=== PATIENT | female | born 1955 | race Caucasian/White ===

== ENCOUNTER 2021-03-19 03:35 | Inpatient (IN) | payer BC, SELFPAY ==
[~2021-03-19] VITALS: Ht 165.1 cm; Wt 100.2 kg
[2021-03-19 03:40] VITALS: BP_SYST 107
[2021-03-19] MEDS ORDERED: NACL 0.9% 1,000 ML IV ONE (04:00)
[2021-03-19] MEDS ORDERED: ONDANSETRON HCL 4 MG/2 ML VIAL IVP ONE (04:00)
[2021-03-19] MEDS ORDERED: MORPHINE SULFATE 10 MG/ML VIAL IVP ONE (04:00)
[2021-03-19 04:02] LABS: HEMOGLOBIN 14.3 g/dL (12.0-16.0); RED CELL DISTRIBUTION WIDTH 13.2 % (9.0-15.0)
[2021-03-19 04:08] LABS: BASOPHILS % (AUTO) 0.4 % (0.0-2.0); EOSINOPHILS % (AUTO) 0.1 % (0.0-4.0); HEMATOCRIT 42.1 % (36-48); LYMPHOCYTES # (AUTO) 1.8 K/uL (1.0-5.5); LYMPHOCYTES % (AUTO) 14.2 % (20.5-51.5); MEAN CORPUSCULAR HEMOGLOBIN 31 pg (27-31); MEAN CORPUSCULAR HGB CONC 34 % (32-36); MEAN CORPUSCULAR VOLUME 90 fL (79.0-98.0); MONOCYTES # (AUTO) 0.7 K/uL (0.0-1.0); MONOCYTES % (AUTO) 5.7 % (1.7-9.3); NEUTROPHILS # (AUTO) 10.1 K/uL (1.8-7.7); NEUTROPHILS % (AUTO) 79.6 % (40.0-70.0); PLATELET COUNT (AUTO) 275 K/uL (130-430); RED BLOOD CELL COUNT(AUTO) 4.69 MIL/uL (4.2-6.2); WHITE BLOOD COUNT (AUTO) 12.7 K/uL (4.8-10.8)
[2021-03-19 04:09] LABS: CALCIUM 9.5 mg/dL (8.4-11.0); CREATININE 1.06 mg/dL (0.55-1.30); POTASSIUM 3.5 mmol/L (3.5-5.1)
[2021-03-19 04:15] LABS: ALBUMIN 3.7 g/dL (3.4-4.8); TOTAL BILIRUBIN 0.6 mg/dL (0.0-1.0)
[2021-03-19] MEDS ORDERED: LEVO25TA7 PO (05:45)
[2021-03-19] MEDS ORDERED: PRO10 PO (05:45)
[2021-03-19] MEDS ORDERED: HYDR12.55 (05:45)
[2021-03-19] MEDS ORDERED: PIPERACILLIN/TAZO 3.375 GM in NS 50 ML IV ONE (06:00)
[2021-03-19] MEDS: LEVOTHYROXINE SODIUM 0.025 MG TABLET PO SCH (07:00)
[2021-03-19 07:02] VITALS: BP_SYST 111
[2021-03-19] MEDS ORDERED: NALOXONE HCL 0.4 MG/ML AMP (NARCAN) IVP PRN ×2 (07:15→18:30)
[2021-03-19] MEDS ORDERED: MORPHINE 4 MG INJ. 4 MG/ML VIAL IVP PRN (07:15)
[2021-03-19] MEDS ORDERED: ONDANSETRON HCL 4 MG/2 ML VIAL IVP PRN (07:15)
[2021-03-19] MEDS: PIPERACILLIN/TAZO 3.375/DEX-IS 50 ML IV SCH ×4 (07:15→23:23)
[2021-03-19] MEDS ORDERED: ALBUTEROL SULFATE 0.083% 2.5 MG/3 ML VIAL.NEB INH PRN (07:15)
[2021-03-19] MEDS ORDERED: MORPHINE 2 MG/ML INJ. SYRINGE IVP PRN (07:15)
[2021-03-19] MEDS ORDERED: LORazepam 2 MG/ML VIAL IVP PRN (07:30)
[2021-03-19] MEDS ORDERED: ACETAMINOPHEN 325 MG TABLET PO PRN (08:00)
[2021-03-19 08:21] VITALS: BP_SYST 116
[2021-03-19] MEDS: FLUoxetine HCL 10 MG CAPSULE (PROzac) PO SCH (09:00)
[2021-03-19 09:16] VITALS: BP_SYST 116
[2021-03-19] MEDS: NACL 0.9% 1,000 ML IV SCH ×3 (09:19→23:15)
[2021-03-19 09:34] LABS: BILIRUBIN,URINE NEGATIVE (NEGATIVE); BLOOD, URINE NEGATIVE (NEGATIVE); GLUCOSE,URINE NEGATIVE (NEGATIVE); KETONES,URINE NEGATIVE (NEGATIVE); LEUKOCYTE ESTERASE ,URINE NEGATIVE (NEGATIVE); NITRITE, URINE NEGATIVE (NEGATIVE); PH,URINE 5.5 (5.0-8.0); PROTEIN URINE NEGATIVE (NEGATIVE); UROBILINOGEN,URINE 0.2 (0.2-1.0)
[2021-03-19 09:38] LABS: CLARITY/URINE SLIGHTLY HAZY (CLEAR); COLOR,URINE AMBER (YELLOW)
[2021-03-19 11:24] VITALS: BP_SYST 118
[2021-03-19] MEDS: ACETAMINOPHEN 325 MG TABLET PO PRN (14:38)
[2021-03-19 15:48] VITALS: BP_SYST 119
[2021-03-19] MEDS ORDERED: KETOROLAC TROMETHAMINE 30 MG VIAL IVP PRN (18:30)
[2021-03-19] MEDS ORDERED: HYDROmorphone 1 MG/ML INJ. CARTRIDGE IVP PRN (18:30)
[2021-03-19] MEDS ORDERED: METOCLOPRAMIDE HCL 10 MG/2 ML VIAL IVP PRN (18:30)
[2021-03-20 00:14] VITALS: BP_SYST 99
[2021-03-20] MEDS: ACETAMINOPHEN 325 MG TABLET PO PRN ×2 (01:37→13:54)
[2021-03-20] MEDS: PIPERACILLIN/TAZO 3.375/DEX-IS 50 ML IV SCH ×3 (05:11→18:37)
[2021-03-20] MEDS: LEVOTHYROXINE SODIUM 0.025 MG TABLET PO SCH (06:13)
[2021-03-20] MEDS: NACL 0.9% 1,000 ML IV SCH ×2 (06:17→15:15)
[2021-03-20 06:43] LABS: BASOPHILS % (AUTO) 0.1 % (0.0-2.0); HEMATOCRIT 35.9 % (36-48); LYMPHOCYTES # (AUTO) 0.5 K/uL (1.0-5.5); LYMPHOCYTES % (AUTO) 3.5 % (20.5-51.5); MEAN CORPUSCULAR HEMOGLOBIN 31 pg (27-31); MEAN CORPUSCULAR HGB CONC 34 % (32-36); MEAN CORPUSCULAR VOLUME 92 fL (79.0-98.0); MONOCYTES # (AUTO) 0.4 K/uL (0.0-1.0); MONOCYTES % (AUTO) 2.5 % (1.7-9.3); NEUTROPHILS # (AUTO) 13.4 K/uL (1.8-7.7); NEUTROPHILS % (AUTO) 93.9 % (40.0-70.0); PLATELET COUNT (AUTO) 199 K/uL (130-430); RED BLOOD CELL COUNT(AUTO) 3.92 MIL/uL (4.2-6.2); RED CELL DISTRIBUTION WIDTH 13.5 % (9.0-15.0); WHITE BLOOD COUNT (AUTO) 14.2 K/uL (4.8-10.8)
[2021-03-20 07:20] LABS: ALBUMIN 2.8 g/dL (3.4-4.8); CALCIUM 8.1 mg/dL (8.4-11.0); CREATININE 1.04 mg/dL (0.55-1.30); POTASSIUM 3.8 mmol/L (3.5-5.1); TOTAL BILIRUBIN 0.4 mg/dL (0.0-1.0)
[2021-03-20 08:00] VITALS: BP_SYST 98
[2021-03-20] MEDS: FLUoxetine HCL 10 MG CAPSULE (PROzac) PO SCH (08:25)
[2021-03-20 11:31] VITALS: BP_SYST 101
[2021-03-20 15:53] VITALS: BP_SYST 91
[2021-03-20] MEDS ORDERED: ZOLPIDEM TARTRATE 5 MG TABLET PO PRN (20:00)
[2021-03-20 20:30] VITALS: BP_SYST 118
[2021-03-21 00:34] VITALS: BP_SYST 99
[2021-03-21] MEDS: PIPERACILLIN/TAZO 3.375/DEX-IS 50 ML IV SCH ×3 (00:35→12:38)
[2021-03-21] MEDS: NACL 0.9% 1,000 ML IV SCH ×2 (00:36→06:06)
[2021-03-21] MEDS: LEVOTHYROXINE SODIUM 0.025 MG TABLET PO SCH (06:06)
[2021-03-21 08:15] VITALS: BP_SYST 108
[2021-03-21] MEDS ORDERED: AUG875 PO (09:27)
[2021-03-21] MEDS: FLUoxetine HCL 10 MG CAPSULE (PROzac) PO SCH (09:43)
[2021-03-21] MEDS: ACETAMINOPHEN 325 MG TABLET PO PRN (10:36)
[2021-03-21 11:20] VITALS: BP_SYST 130
[2021-03-21 15:21] VITALS: BP_SYST 118
[2021-03-21 18:25] VITALS: BP_SYST 118
== END 2021-03-21 18:50 | disposition home or self-care (01) | DRG 340 ==
LOC: SED 03:35 → SMU 06:26
PROVIDERS: ADMIT Internal Medicine Hospice and Palliative Medicine; ATTEND Internal Medicine Hospice and Palliative Medicine
PROC: 0DTJ4ZZ Resection of Appendix, Percutaneous Endoscopic Approach (ICD-10-PCS; principal; 2021-03-19 17:50)
DX: K35.32 Acute appendicitis with perforation, localized peritonitis, and gangrene, without abscess (principal); K66.0 Peritoneal adhesions (postprocedural) (postinfection); F41.1 Generalized anxiety disorder; E03.9 Hypothyroidism, unspecified; K43.9 Ventral hernia without obstruction or gangrene; Z20.822 Contact with and (suspected) exposure to COVID-19; I10 Essential (primary) hypertension; Z90.710 Acquired absence of both cervix and uterus; Z90.49 Acquired absence of other specified parts of digestive tract; Z79.890 Hormone replacement therapy
CPT/HCPCS: 36415; 71045; 76376; 80053; 81003; 83690; 85025; 85610-TC; 87070-TC; 87075-TC; 87081; 88304; 93005; 93306; 96361; 96365; 96375; 99285; J2270; J2405; J2543

== ENCOUNTER 2021-12-08 05:30 | Inpatient (IN) | payer BC, SELFPAY ==
[~2021-12-08] VITALS: Ht 165.1 cm; Wt 93.0 kg
[~2021-12-08 05:30] MED LIST: AUG875 PO; HYDR12.55; LEVO25TA7 PO; PRO10 PO
[2021-12-08] MEDS ORDERED: CEFAZOLIN 1 GM IVPB PREMIX 0 ML IV ONE (06:14)
[2021-12-08] MEDS ORDERED: CEFAZOLIN SOD 1 GM in D5W 50 ML IV ONE (07:00)
[2021-12-08] MEDS ORDERED: ACETAMINOPHEN I.V. 1000 MG 100 ML IV ONE (07:32)
[2021-12-08] MEDS ORDERED: BUPIVACAINE LIPOSOME/PF 266 MG/20 ML VIAL INFIL ONE (08:12)
[2021-12-08] MEDS ORDERED: LR 1,000 ML IV SCH (08:30)
[2021-12-08] MEDS ORDERED: hydrALAZINE HCL 20 MG/ML VIAL IVP PRN (08:30)
[2021-12-08] MEDS ORDERED: METOCLOPRAMIDE HCL 10 MG/2 ML VIAL IVP PRN (08:30)
[2021-12-08] MEDS ORDERED: MEPERIDINE HCL/PF 25 MG/ML DISP.SYRIN IVP PRN (08:30)
[2021-12-08] MEDS ORDERED: HYDROmorphone 1 MG/ML INJ. CARTRIDGE IVP PRN ×3 (08:30→10:00)
[2021-12-08] MEDS ORDERED: MIDAZOLAM HCL 2 MG/2 ML VIAL (VERSED) IVP PRN (08:30)
[2021-12-08] MEDS ORDERED: ONDANSETRON HCL 4 MG/2 ML VIAL IVP PRN (10:00)
[2021-12-08] MEDS ORDERED: MIDAZOLAM HCL 5 MG/ML VIAL (VERSED) IV ONE (10:22)
[2021-12-08] MEDS ORDERED: PROPOFOL 200MG/ 20ML VIAL (DIPRIVAN) IV ONE (10:22)
[2021-12-08] MEDS ORDERED: SUGAMMADEX SODIUM 200 MG/2 ML VIAL IV ONE (10:22)
[2021-12-08] MEDS ORDERED: NS IRRIG SOLN 1000 ML IR ONE (10:22)
[2021-12-08] MEDS ORDERED: ONDANSETRON HCL 4 MG/2 ML VIAL ONE (10:22)
[2021-12-08] MEDS ORDERED: DEXAMETHASONE SOD PHOSPHATE 4 MG/ML VIAL ONE (10:22)
[2021-12-08] MEDS ORDERED: CEFAZOLIN 2 GM IVPB PREMIX 50 ML IV ONE (10:22)
[2021-12-08] MEDS ORDERED: KETOROLAC TROMETHAMINE 30 MG VIAL ONE (10:22)
[2021-12-08] MEDS ORDERED: LIDOCAINE 2%, 20 ML MDV ONE (10:22)
[2021-12-08] MEDS ORDERED: LR 1,000 ML IV.SOLN IV ONE (10:22)
[2021-12-08] MEDS ORDERED: ROCURONIUM BROMIDE 10 MG/ML (ZEMURON) ONE (10:22)
[2021-12-08] MEDS ORDERED: DESFLURANE 15 MIN GAS INH ONE (10:22)
[2021-12-08] MEDS ORDERED: fentaNYL CITRATE 250 MCG/5 ML AMP ONE (10:22)
[2021-12-08] MEDS ORDERED: FLUO20TA29 PO (11:04)
[2021-12-08] MEDS ORDERED: HYDR12.55 PO (11:06)
[2021-12-08] MEDS ORDERED: SYN75 PO (11:07)
[2021-12-08] MEDS ORDERED: LORA-258 PO (11:08)
[2021-12-08 12:26] VITALS: BP_SYST 106
[2021-12-08] MEDS: D5/0.45 NS 1,000 ML IV SCH ×2 (12:42→22:42)
[2021-12-08] MEDS: CEFAZOLIN 1 GM IVPB PREMIX 50 ML IV SCH ×2 (13:01→22:42)
[2021-12-08] MEDS: HYDROcodone/ACETAMIN 5-325 MG TAB (NORCO/ VICODIN) PO PRN (22:40)
[2021-12-08] MEDS: FAMOTIDINE PF 20 MG/2 ML VIAL IVP SCH (22:41)
[2021-12-09 04:00] VITALS: BP_SYST 113
[2021-12-09] MEDS: FAMOTIDINE PF 20 MG/2 ML VIAL IVP SCH ×2 (07:48→21:33)
[2021-12-09] MEDS: ENOXAPARIN SODIUM 30 MG/0.3 ML SYRINGE SUBCUT SCH (07:52)
[2021-12-09 08:45] VITALS: BP_SYST 124
[2021-12-09] MEDS: D5/0.45 NS 1,000 ML IV SCH ×2 (09:57→16:59)
[2021-12-09 11:10] VITALS: BP_SYST 118
[2021-12-09] MEDS: HYDROcodone/ACETAMIN 5-325 MG TAB (NORCO/ VICODIN) PO PRN ×3 (12:56→21:06)
[2021-12-09] MEDS: METOCLOPRAMIDE HCL 10 MG TABLET PO SCH (17:02)
[2021-12-09 17:07] VITALS: BP_SYST 134
[2021-12-09 22:56] VITALS: BP_SYST 115
[2021-12-09 23:04] VITALS: BP_SYST 157
[2021-12-10] MEDS: METOCLOPRAMIDE HCL 10 MG TABLET PO SCH ×5 (01:03→23:52)
[2021-12-10] MEDS: HYDROcodone/ACETAMIN 5-325 MG TAB (NORCO/ VICODIN) PO PRN ×5 (01:06→23:54)
[2021-12-10] MEDS: D5/0.45 NS 1,000 ML IV SCH ×3 (01:08→21:10)
[2021-12-10 01:37] VITALS: BP_SYST 115
[2021-12-10] MEDS: LEVOTHYROXINE SODIUM 0.15 MG TABLET PO SCH (06:09)
[2021-12-10 08:00] VITALS: BP_SYST 112
[2021-12-10] MEDS: FLUoxetine HCL 20 MG CAPSULE (PROzac) PO SCH (09:40)
[2021-12-10] MEDS: FAMOTIDINE PF 20 MG/2 ML VIAL IVP SCH ×2 (09:40→21:10)
[2021-12-10] MEDS: ENOXAPARIN SODIUM 30 MG/0.3 ML SYRINGE SUBCUT SCH (09:41)
[2021-12-10] MEDS ORDERED: LORazepam 1 MG TABLET PO PRN (10:00)
[2021-12-10] MEDS ORDERED: LEVOTHYROXINE SODIUM 0.15 MG TABLET PO ONE (10:00)
[2021-12-10] MEDS ORDERED: HYDROCHLOROTHIAZIDE 12.5 MG CAPSULE (HCTZ) PO ONE (10:15)
[2021-12-10] MEDS: LORazepam 1 MG TABLET PO PRN ×2 (12:07→23:52)
[2021-12-10 13:07] VITALS: BP_SYST 117
[2021-12-10 17:24] VITALS: BP_SYST 114
[2021-12-10 19:00] VITALS: BP_SYST 115
[2021-12-10 20:00] VITALS: BP_SYST 115
[2021-12-10] MEDS: AMOXICILLIN/CLAVULANATE POTASSIUM 875 MG TABLET PO SCH (21:10)
[2021-12-11 00:12] VITALS: BP_SYST 126
[2021-12-11 06:15] LABS: BASOPHILS % (AUTO) 0.4 % (0.0-2.0); EOSINOPHILS # (AUTO) 0.3 K/uL (0.0-0.4); HEMATOCRIT 33.7 % (36-48); HEMOGLOBIN 11.4 g/dL (12.0-16.0); LYMPHOCYTES # (AUTO) 1.3 K/uL (1.0-5.5); LYMPHOCYTES % (AUTO) 16.1 % (20.5-51.5); MEAN CORPUSCULAR HEMOGLOBIN 31 pg (27-31); MEAN CORPUSCULAR HGB CONC 34 % (32-36); MEAN CORPUSCULAR VOLUME 91 fL (79.0-98.0); MONOCYTES # (AUTO) 0.9 K/uL (0.0-1.0); MONOCYTES % (AUTO) 10.9 % (1.7-9.3); NEUTROPHILS # (AUTO) 5.4 K/uL (1.8-7.7); NEUTROPHILS % (AUTO) 68.6 % (40.0-70.0); PLATELET COUNT (AUTO) 202 K/uL (130-430); RED CELL DISTRIBUTION WIDTH 12.9 % (9.0-15.0); WHITE BLOOD COUNT (AUTO) 7.8 K/uL (4.8-10.8)
[2021-12-11] MEDS: METOCLOPRAMIDE HCL 10 MG TABLET PO SCH ×2 (06:29→12:22)
[2021-12-11] MEDS: LEVOTHYROXINE SODIUM 0.15 MG TABLET PO SCH (06:30)
[2021-12-11 06:50] LABS: CALCIUM 9.1 mg/dL (8.4-11.0); CREATININE 0.69 mg/dL (0.55-1.30); POTASSIUM 3.3 mmol/L (3.5-5.1)
[2021-12-11] MEDS ORDERED: LEVOTHYROXINE SODIUM 0.15 MG TABLET PO SCH (07:00)
[2021-12-11 07:58] VITALS: BP_SYST 133
[2021-12-11] MEDS: FAMOTIDINE PF 20 MG/2 ML VIAL IVP SCH (08:39)
[2021-12-11] MEDS: AMOXICILLIN/CLAVULANATE POTASSIUM 875 MG TABLET PO SCH (08:39)
[2021-12-11] MEDS: FLUoxetine HCL 20 MG CAPSULE (PROzac) PO SCH (08:39)
[2021-12-11] MEDS: ENOXAPARIN SODIUM 30 MG/0.3 ML SYRINGE SUBCUT SCH (08:44)
[2021-12-11] MEDS: D5/0.45 NS 1,000 ML IV SCH (08:45)
[2021-12-11] MEDS ORDERED: FLUoxetine HCL 20 MG CAPSULE (PROzac) PO SCH (09:00)
[2021-12-11] MEDS ORDERED: HYDROCHLOROTHIAZIDE 12.5 MG CAPSULE (HCTZ) PO SCH (09:00)
[2021-12-11] MEDS: HYDROcodone/ACETAMIN 5-325 MG TAB (NORCO/ VICODIN) PO PRN (09:07)
[2021-12-11] MEDS ORDERED: HYDR-3919 PO (10:11)
[2021-12-11 12:30] VITALS: BP_SYST 112
[2021-12-11 12:48] VITALS: BP_SYST 112
== END 2021-12-11 16:25 | disposition home health service (06) | DRG 355 ==
LOC: SMU 05:30 → SDS 05:30 → SMU 11:28 → SDS 11:44 → SMU 12-09 22:17
PROVIDERS: ADMIT Colon & Rectal Surgery; ATTEND Colon & Rectal Surgery
PROC: 0WUF0JZ Supplement Abdominal Wall with Synthetic Substitute, Open Approach (ICD-10-PCS; principal; 2021-12-08 07:45)
DX: K43.0 Incisional hernia with obstruction, without gangrene (principal); E03.9 Hypothyroidism, unspecified; F32.A Depression, unspecified; F41.9 Anxiety disorder, unspecified; B88.0 Other acariasis; E87.6 Hypokalemia; D64.9 Anemia, unspecified; R73.9 Hyperglycemia, unspecified; Z20.822 Contact with and (suspected) exposure to COVID-19; K66.0 Peritoneal adhesions (postprocedural) (postinfection)
CPT/HCPCS: 36415; 80048; 85025; 87081; 97112-GP; 97116-GP; 97163-GP; 97530-GP; C9290; J0131; J0690; J1100; J1170; J1650; J1885; J2001; J2250; J2405; J2704; J3010; J3490; J7060; J7120; J8597; U0003